=== PATIENT | female | born 1990 | race Caucasian/White ===

== ENCOUNTER → 2016-10-25 | Outpatient (CLI) | payer OTHER ==
[~2016-10-25] MED LIST: BIO CLEANSE PO; HYDROCODONE-AC474 ML PO; MULTI VITAMIN1 EACH PO; NORCO 5-325 TA1 EACH PO; PEPCID20 MG PO; PRILOSEC 20 MG20 MG PO; PROBIOTIC1 EAC1 PO; TRANSDERM-SCO1 PATC1 TD; ZOFRAN ODT4 MG PO; ZOFRAN ODT8 MG PO
--- NOTE | ~2016-10-25 | SLE ---
[facility] [address] [id number] POLYSOMNOGRAPHY STUDY Name: WICHO BECERRA Room #: REG [facility] M..#: [id number] Admission: 10/25/16 Attend Phys: Demetrius Sharam MD Discharge: Date of : 86 Report #: [id number] THIS REPORT FOR: //name// CC: Katerina Erickson MD AMENDED REPORT - SEE BELOW Prior study May 03 showed possible sleep apnea with an AHI of 4.2 events per recording hour. Low oxygen saturation 82%, spending 0.3% of recording time less than 90% on a home study. COMMENTS: The patient has restless legs, tired during the day, snoring, evaluation for gastric sleeve, psg with mslt was ordered. COMMENTS: SLEEP SUMMARY: Total sleep time 437 minutes, sleep efficiency 93%. Sleep latency 13 minutes, REM latency 66 minutes. SLEEP STAGE: 1-3%, 2-61%, 3-14%, REM 22%. RESPIRATORY SUMMARY: Central apnea 11, obstructive apnea 15, hypopnea 183. Apnea-hypopnea index 28.7 events per sleep hour. Non-REM 28.5, REM AHI 29.4 events per sleep hour. Supine AHI 33.7, left lateral 40.9, right lateral 10.2 events per sleep hour. Max heart rate 109. Periodic limb movement with arousal index 0.5 events per sleep hour. Snoring noted. Low oxygen saturation 92%. IMPRESSION: 1. Obstructive sleep apnea/hypopnea, G47.33. 2. Periodic limb movement with arousal index of 0.5 events per sleep hour. 3. PAC/PVCs noted. SUGGESTIONS: 1. In addition to specific therapy, the patient should be cautioned regarding driving or operating dangerous machinery unless fully alert. TSH and weight loss per Dr. Erickson. 2. Further evaluation regarding etiology of snoring is recommended. 3. Oral appliance or appropriate surgery may be considered with appropriate followup. 4. Either an auto titrating CPAP or a CPAP titration night is initially recommended. 5. Further evaluation regarding PACs/PVCs may be considered. 6. If signs and symptoms not improved with therapy, further evaluation is recommended. Please do not hesitate to contact if we may be of further assistance. [facility] [address] [place] [address] POLYSOMNOGRAPHY STUDY Name: WICHO BECERRA Room #: REG [facility].#: [id number] Admission: 10/25/16 Attend Phys: Demetrius Sharma MD Discharge: Date of : 86 Report #: [id number] AMENDMENT (DEMOGRAPHIC ERROR): 11/02/16 Report originally electronically signed: 10/27/16 <ELECTRONICALLY SIGNED> By: Demetrius Sharma MD 11/29/16 2218 1816 [id number] Demetrius Sharma MD /nt
== END ==
LOC: SLEEPLAB 10-07 10:27
DX: G47.33 Obstructive sleep apnea (adult) (pediatric) (principal)

== ENCOUNTER → 2016-11-14 | Outpatient (CLI) | payer OTHER ==
--- NOTE | ~2016-11-14 | SLE ---
[facility] [place] [address] POLYSOMNOGRAPHY STUDY Name: WICHO BECERRA [id number] Admission: 11/14/16 Attend Phys: Demetrius Sharma MD Discharge: Date of : 86 Report #: [id number] THIS REPORT FOR: //name// CC: Demetrius Erickson HISTORY OF PRESENT ILLNESS: Prior study April 2016, showed positional sleep apnea. A study in October 2016, showed apnea-hypopnea index 20.7 events per sleep hour. Low oxygen saturation 92%. COMMENTS: CPAP TITRATION: Titrated at 6, 8, 10, 12, 13 and 14 cm water pressure. At 14 cm water pressure, the patient was seen for 34 minutes of which 24 minutes was in REM sleep. Apnea/hypopnea index 0 events per sleep hour, low sat of 93%. CPAP was mainly increased secondary to snoring. IMPRESSION: 1. Obstructive sleep apnea/hypopnea, G47.33. 2. CPAP improves the patient's apnea/hypopnea index, snoring, and desaturation. 3. No significant arrhythmia noted. SUGGESTIONS: 1. In addition to specific therapy, the patient should be cautioned regarding driving or operating dangerous machinery unless fully alert. The patient should be cautioned regarding the use of respiratory depressants. 2. Usual sleep apnea suggestions are recommended. 3. As the CPAP was increased mainly secondary to snoring and the patient is considering weight loss, an auto-titrating CPAP between 6 and 14 cm water pressure is recommended. During our study, an Traci full face large mask was used with heated humidity. 4. If signs and symptoms not improved with therapy, further evaluation recommended. Please do not hesitate to contact me if I may be of further assistance. <ELECTRONICALLY SIGNED> By: Demetrius Sharma MD 11/29/16 2316 54 13 Demetrius Sharma MD /nt
== END ==
LOC: SLEEPLAB 11-13 10:37
DX: G47.33 Obstructive sleep apnea (adult) (pediatric) (principal)